=== PATIENT | male | born 1960 | race American Indian/Alaskan Native ===

== ENCOUNTER 2017-08-08 02:29 | Emergency (ER) | payer BC ==
[2017-08-08] MEDS ORDERED: Sodium Chloride 0.9% 10 ML Syringe FLUSH PRN (02:38)
--- NOTE | 2017-08-08 02:49 | EDM.PDOC ---
ED HPI GENERAL MEDICAL PROBLEM - General Chief Complaint: Cardiovascular Problem Stated Complaint: ABD/CHEST PAIN [id number] Time Seen by Provider: 08/08/17 02:44 Source of Information: Reports: Patient, RN, RN Notes Reviewed History Limitations: Reports: No Limitations - History of Present Illness INITIAL COMMENTS - FREE TEXT/NARRATIVE: Pt presents to the ER with c/o chest/gastric pain. He states he was up to the bathroom at 0030 when he began to have mid sternal/ gastric pain which radiated into the back. He states he had somewhat of an upset stomach. He denies any cardiac history. He states he takes Prilosec for GERD, and methotrexate for arthritis, but has no other health problems. Patient rates the pain a 7/10 and is more painful with palpation. Denies SOB, N/V/D, fever or chills. No radiation to the jaw, neck, or arms. Onset: Today, Sudden Onset Time: 00:30 Duration: Constant Location: Reports: Chest, Abdomen Quality: Reports: Pressure, Sharp, Stabbing Severity: Moderate Improves with: Reports: None Worsens with: Reports: None Associated Symptoms: Reports: Chest Pain Epigastric Pain Score (Numeric/FACES): 5 - Related Data Allergies Allergy/AdvReac Type Severity Reaction Status Date / Time varenicline tartrate Allergy Seizure Verified 08/08/17 02:54 [From Chantix] Home Meds: Home Meds Methotrexate Sodium [Methotrexate] 2.5 mg PO WEEKLY 08/08/17 [History] Omeprazole Magnesium [Prilosec] 20 mg PO DAILY 08/08/17 [History] Past Medical History - Past Health History Medical/Surgical History: Denies Medical/Surgical History HEENT History: Reports: Hard of Hearing Neurological History: Reports: Seizure Psychiatric History: Reports: Anxiety Social & Family History - Tobacco Use Smoking Status *Q: Never Smoker - Alcohol Use Days Per Week of Alcohol Use: 0 - Recreational Drug Use Recreational Drug Use: No ED ROS GENERAL - Review of Systems Review Of Systems: ROS reveals no pertinent complaints other than HPI. ED EXAM, GENERAL - Physical Exam Exam: See Below Exam Limited By: No Limitations General Appearance: Alert, WD/WN, No Apparent Distress Eye Exam: Bilateral Eye: EOMI, Normal Inspection, PERRL Ears: Normal External Exam, Hearing Grossly Normal Nose: Normal Inspection Throat/Mouth: Normal Inspection, Normal Voice, No Airway Compromise Head: Atraumatic, Normocephalic Neck: Normal Inspection, Supple, Non-Tender, Full Range of Motion Respiratory/Chest: No Respiratory Distress, Lungs Clear, Normal Breath Sounds, No Accessory Muscle Use, Chest Non-Tender Cardiovascular: Normal Peripheral Pulses, Regular Rate, Rhythm, No Edema, No Gallop, No JVD, No Murmur, No Rub Peripheral Pulses: 2+: Radial (L), Radial (R), Dorsalis Pedis (L), Dorsalis Pedis (R) GI/Abdominal: Normal Bowel Sounds, Soft, No Organomegaly, No Distention, No Abnormal Bruit, No Mass, Tender (epigastrum) (Male) Exam: Deferred Rectal (Males) Exam: Deferred Back Exam: Normal Inspection, Full Range of Motion Extremities: Normal Inspection, Normal Range of Motion, Non-Tender, Normal Capillary Refill, No Pedal Edema Neurological: Alert, Oriented, CN II-XII Intact, Normal Cognition, Normal Gait, Normal Reflexes, No Motor/Sensory Deficits Psychiatric: Normal Affect, Normal Mood Skin Exam: Warm, Dry, Intact, Normal Color, No Rash Lymphatic: No Adenopathy EKG INTERPRETATION EKG Date: 08/08/17 Time: 02:34 Rhythm: NSR Rate (Beats/Min): 74 [place]: Normal P-Wave: Present QRS: Normal ST-T: Normal QT: Normal Comparison: No Change Course - Vital Signs Last Recorded V/S: Last Vital Signs Temp 96.4 F 08/08/17 02:59 Pulse 63 08/08/17 02:59 Resp 14 08/08/17 02:59 BP 122/80 08/08/17 02:59 Pulse Ox 98 08/08/17 02:59 - Orders/Labs/Meds Orders: Active Orders 24 hr Category Date Time Status EKG Documentation Completion [RC] STAT Care 08/08/17 02:38 Active Chest 1V Frontal [CR] Stat Exams 08/08/17 02:38 Taken Sodium Chloride 0.9% [Saline Flush] Med 08/08/17 02:38 Active 10 ml FLUSH ASDIRECTED PRN Peripheral IV Insertion Adult [OM.PC] Stat Oth 08/08/17 02:38 Ordered Medication Orders Sodium Chloride (Saline Flush) 10 ml FLUSH ASDIRECTED PRN PRN Reason: Keep Vein Open Last Admin: 08/08/17 03:19 Dose: 10 ml Labs: Laboratory Tests 08/08/17 08/08/17 Range/Units 02:45 02:45 WBC 5.2 (5.0-10.0) 10^3/uL RBC 4.48 L (4.6-6.2) 10^6/uL Hgb 13.2 L (14.0-18.0) g/dL Hct 37.9 L (40.0-54.0) % MCV 84.6 (80-100) fL MCH 29.5 (27.0-34.0) pg MCHC 34.8 (33.0-35.0) g/dL Plt Count 124 L (150-450) 10^3/uL Neut % (Auto) 26.8 L (42.2-75.2) % Lymph % (Auto) 59.9 H (20.5-50.1) % [place] % (Auto) 12.5 H (2-8) % Eos % (Auto) 0.6 L (1.0-3.0) % Baso % (Auto) 0.2 (0.0-1.0) % Sodium 138 (135-145) mmol/L Potassium 3.7 (3.6-5.0) mmol/L Chloride 104 (101-111) mmol/L Carbon Dioxide 27.0 (21.0-31.0) mmol/L Anion Gap 10.7 BUN 16 (7-18) mg/dL Creatinine 0.9 (0.6-1.3) mg/dL Est Cr Clr Drug Dosing 107.82 mL/min Estimated GFR (MDRD) > 60 BUN/Creatinine Ratio 17.77 Glucose 107 H (74-105) mg/dL Calcium 9.0 (8.4-10.2) mg/dl Total Bilirubin 1.0 (0.2-1.0) mg/dL AST 26 (10-42) IU/L ALT 21 (10-60) IU/L Alkaline Phosphatase 47 (42-121) IU/L Troponin I < 0.02 (0.00-0.02) ng/ml Total Protein 7.3 (6.7-8.2) g/dl Albumin 4.3 (3.2-5.5) g/dl Globulin 3.0 Albumin/Globulin Ratio 1.43 Amylase 49 (28-100) U/L Lipase 25 (22-51) U/L Meds: Medications Generic Name Dose Route Start Last Admin Trade Name Freq PRN Reason Stop Dose Admin Sodium Chloride 10 ml 08/08/17 02:38 08/08/17 03:19 Saline Flush FLUSH 10 ml ASDIRECTED PRN Administration Keep Vein Open Discontinued Medications Generic Name Dose Route Start Last Admin Trade Name Freq PRN Reason Stop Dose Admin Al Hydroxide/Mg Hydroxide 30 ml 08/08/17 03:09 08/08/17 03:18 Gi Cocktail PO 08/08/17 03:10 30 ml ONETIME ONE Administration Pantoprazole Sodium 40 mg 08/08/17 03:39 08/08/17 03:54 Protonix Iv IVPUSH 08/08/17 03:40 40 mg ONETIME ONE Administration Sucralfate 1 gm 08/08/17 03:55 08/08/17 04:03 Carafate PO 08/08/17 03:56 1 gm ONETIME ONE Administration - Radiology Interpretation Free Text/Narrative:: Chest xray:IMPRESSION: Normal chest x-ray. Thank you for allowing us to participate in the care of your patient. Dictated and Authenticated by: Chet Betancourt MD 08/08/2017 3:42 AM Central Time ([place] & [place]) See rad report Departure - Departure Time of Disposition: 04:08 Disposition: Home, Self-Care 01 Condition: Fair Clinical Impression: Gastroesophageal reflux disease Qualifiers: Esophagitis presence: esophagitis presence not specified Qualified Code(s): K21.9 - Gastro-esophageal reflux disease without esophagitis Instructions: Food Choices for Gastroesophageal Reflux Disease, Adult, Easy-to- Read, Nonspecific Chest Pain, [id number], Gastroesophageal Reflux Disease, Adult, [id number] Forms: ED Department Discharge Additional Instructions: Drink plenty of water RX: Carafate Make an appointment to see Dr. Perez next week - My Orders Last 24 Hours: My Active Orders 08/08/17 02:38 EKG Documentation Completion [RC] STAT Chest 1V Frontal [CR] Stat Sodium Chloride 0.9% [Saline Flush] 10 ml FLUSH ASDIRECTED PRN Peripheral IV Insertion Adult [OM.PC] Stat - Assessment/Plan Last 24 Hours: My Active Orders 08/08/17 02:38 EKG Documentation Completion [RC] STAT Chest 1V Frontal [CR] Stat Sodium Chloride 0.9% [Saline Flush] 10 ml FLUSH ASDIRECTED PRN Peripheral IV Insertion Adult [OM.PC] Stat
[2017-08-08 03:08] VITALS: BP 122/80
[2017-08-08] MEDS ORDERED: GI Cocktail Oral Solution 30 ML PO ONE (03:09)
[2017-08-08 03:11] LABS: CHLORIDE,CL 104 mmol/L (101-111); SODIUM,NA 138 mmol/L (135-145)
[2017-08-08] MEDS ORDERED: Pantoprazole 40 MG Vial IVPUSH ONE (03:39)
[2017-08-08] MEDS ORDERED: Sucralfate Suspension 1 GM/10 ML Cup PO ONE (03:55)
--- NOTE | 2017-08-11 14:03 | EKG ---
08/08/2017- TYLER ALMANZAR - FINDINGS: EKG, per my reading, shows sinus rhythm at the rate of 70s. MOD /[id number]
== END 2017-08-08 04:15 | disposition home or self-care (01) ==
LOC: DL.ED 02:29
DX: K21.9 Gastro-esophageal reflux disease without esophagitis (principal); Z88.8 Allergy status to other drugs, medicaments and biological substances; Z79.899 Other long term (current) drug therapy
CPT/HCPCS: 36415; 71045; 80053; 82150; 83690; 84484; 85025; 93005; 96374; 99284; A9270; C9113; J7050

== ENCOUNTER 2019-03-21 14:57 | Observation (INO) | payer BC ==
[2019-03-21 15:36] LABS: ANION GAP 14.1; CHLORIDE,CL 102 mmol/L (101-111); SODIUM,NA 140 mmol/L (135-145)
[2019-03-21] MEDS ORDERED: Morphine 2 MG/ML Syringe IVPUSH ONE (15:41)
[2019-03-21] MEDS ORDERED: Iopamidol 612 MG/ML 100 ML Bottle IVPUSH ONE (16:02)
[2019-03-21] MEDS ORDERED: Pantoprazole 40 MG Vial IVPUSH ONE (17:15)
--- NOTE | 2019-03-21 17:28 | EDM.PDOC ---
Scribed by China Taylor 03/21/19 1726 for Ruba Covington NP ED HPI GENERAL MEDICAL PROBLEM - General Chief Complaint: Chest Pain Stated Complaint: CHEST PAIN Time Seen by Provider: 03/21/19 15:14 Source of Information: Reports: Patient, RN, RN Notes Reviewed History Limitations: Reports: No Limitations - History of Present Illness INITIAL COMMENTS - FREE TEXT/NARRATIVE: Patient presents to ER stating that at 10:00 A.M. this morning he got upper abdominal epigastric pain under both diaphragms. It was severe when he was bent over and severe, then resolved. He had mild nausea. Pain returned one hour ago and presently in ER resolved when being examined. The epigastric pain returned. No nausea or diaphoresis. Denies chest pain. No cardiac history, nonsmoker. No alcohol. Family history negative for cardiac disease. No history of hypertension or diabetes. Last bowel movement yesterday, but having constipation and hard time going to the bathroom. Onset: Today Duration: Getting Worse Location: Reports: Chest Quality: Reports: Ache Severity: Severe Improves with: Reports: None Worsens with: Reports: None Associated Symptoms: Reports: No Other Symptoms Epigastric Pain Score (Numeric/FACES): 8 - Related Data Allergies Allergy/AdvReac Type Severity Reaction Status Date / Time varenicline tartrate Allergy Unknown Seizure Verified 03/21/19 15:10 [From Chantix] Home Meds: Home Meds Methotrexate Sodium [Methotrexate] 2.5 mg PO WEEKLY 08/08/17 [History] Omeprazole Magnesium [Prilosec] 20 mg PO DAILY 08/08/17 [History] Past Medical History - Past Health History Medical/Surgical History: Denies Medical/Surgical History HEENT History: Reports: Hard of Hearing Gastrointestinal History: Reports: GERD Musculoskeletal History: Reports: Arthritis, Other (See Below) Other Musculoskeletal History: ankle, wrist and leg and foot fx. Neurological History: Reports: Seizure Psychiatric History: Reports: Anxiety - Past Surgical History Musculoskeletal Surgical History: Reports: Other (See Below) (ankle surgery) Social & Family History - Family History Family Medical History: Noncontributory - Caffeine Use Caffeine Use: Reports: Coffee ED ROS GENERAL - Review of Systems Review Of Systems: ROS reveals no pertinent complaints other than HPI. ED EXAM, GENERAL - Physical Exam Exam: See Below Exam Limited By: No Limitations General Appearance: Alert, WD/WN, No Apparent Distress Respiratory/Chest: No Respiratory Distress, Lungs Clear, Normal Breath Sounds, No Accessory Muscle Use, Chest Non-Tender Cardiovascular: Normal Peripheral Pulses, Regular Rate, Rhythm, No Edema, No Gallop, No JVD, No Murmur, No Rub GI/Abdominal: Normal Bowel Sounds, Soft, Other (Upper abdominal pain with palpation) Back Exam: Other (No CVA tenderness) Extremities: Normal Inspection Neurological: Alert, Oriented, CN II-XII Intact, Normal Cognition, Normal Gait, Normal Reflexes, No Motor/Sensory Deficits Skin Exam: Warm, Dry, Intact, Normal Color, No Rash Course - Vital Signs Last Recorded V/S: Last Vital Signs Temp 36.1 C 03/21/19 15:10 Pulse 64 03/21/19 15:10 Resp 18 03/21/19 16:04 BP 138/77 03/21/19 15:10 Pulse Ox 96 03/21/19 16:04 - Orders/Labs/Meds Orders: Active Orders 24 hr Category Date Time Status Admission Diagnosis [ADT] Stat ADT 03/21/19 17:17 Ordered Admission Status [Patient Status] [ADT] Routine ADT 03/21/19 17:18 Active EKG Documentation Completion [RC] STAT Care 03/21/19 15:12 Active Abdomen 2V AP Flat Upright [CR] Urgent Exams 03/21/19 15:39 Stop Req C-REACTIVE PROTEIN [CHEM] Stat Lab 03/21/19 17:17 Ordered CULTURE BLOOD [BC] Stat Lab 03/21/19 17:18 Ordered CULTURE BLOOD [BC] Stat Lab 03/21/19 17:18 Ordered URINALYSIS W/MICROSCOPIC [UA W/MICROSCOPIC] [URIN] Stat Lab 03/21/19 17:08 Ordered Pantoprazole [ProTONIX IV] 40 mg Med 03/21/19 17:30 Active Sodium Chloride 0.9% [Normal Saline] 100 ml IV .CONTINUOS Sodium Chloride 0.9% [Normal Saline] 1,000 ml Med 03/21/19 17:30 Active IV ASDIRECTED Blood Culture x2 Reflex Set [OM.PC] Stat Oth 03/21/19 17:17 Ordered Medication Orders Pantoprazole Sodium 40 mg/ (Sodium Chloride) 100 mls @ 20 mls/hr IV .CONTINUOS KAMINI Sodium Chloride (Normal Saline) 1,000 mls @ 150 mls/hr IV ASDIRECTED [facility] Labs: Laboratory Tests 03/21/19 03/21/19 03/21/19 Range/Units 15:08 15:08 15:08 WBC 18.6 H (5.0-10.0) 10^3/uL RBC 5.04 (4.6-6.2) 10^6/uL Hgb 15.0 D (14.0-18.0) g/dL Hct 43.5 (40.0-54.0) % MCV 86.3 (80-100) fL MCH 29.8 (27.0-34.0) pg MCHC 34.5 (33.0-35.0) g/dL Plt Count 155 (150-450) 10^3/uL Neut % (Auto) 12.1 L (42.2-75.2) % Lymph % (Auto) 81.8 H (20.5-50.1) % [place] % (Auto) 5.7 (2-8) % Eos % (Auto) 0.3 L (1.0-3.0) % Baso % (Auto) 0.1 (0.0-1.0) % Add Manual Diff Yes Neutrophils % (Manual) 13 L (42-75) % Band Neutrophils % 4 % Lymphocytes % (Manual) 78 H (20-50) % Monocytes % (Manual) 5 (2-8) % Atypical Lymphocytes Many Platelet Estimate Adequate Anisocytosis 1+ slight Sodium 140 (135-145) mmol/L Potassium 4.1 (3.6-5.0) mmol/L Chloride 102 (101-111) mmol/L Carbon Dioxide 28.0 (21.0-31.0) mmol/L Anion Gap 14.1 BUN 11 (7-18) mg/dL Creatinine 0.8 (0.6-1.3) mg/dL Est Cr Clr Drug Dosing 118.45 mL/min Estimated GFR (MDRD) > 60 BUN/Creatinine Ratio 13.75 Glucose 96 (74-105) mg/dL Calcium 9.6 (8.4-10.2) mg/dl Total Bilirubin 1.5 H (0.2-1.0) mg/dL AST 27 (10-42) IU/L ALT 21 (10-60) IU/L Alkaline Phosphatase 64 (42-121) IU/L Troponin I 0.00 (0.00-0.08) ng/mL Total Protein 7.9 (6.7-8.2) g/dl Albumin 4.7 (3.2-5.5) g/dl Globulin 3.2 Albumin/Globulin Ratio 1.47 Lipase 62 H (22-51) U/L Meds: Medications Generic Name Dose Route Start Last Admin Trade Name Freq PRN Reason Stop Dose Admin Pantoprazole Sodium 40 mg/ 100 mls @ 20 mls/hr 03/21/19 17:30 Sodium Chloride IV .CONTINUOS KAMINI Sodium Chloride 1,000 mls @ 150 mls/hr 03/21/19 17:30 Normal Saline IV ASDIRECTED KAMINI Discontinued Medications Generic Name Dose Route Start Last Admin Trade Name Freq PRN Reason Stop Dose Admin Iopamidol 100 ml 03/21/19 16:02 03/21/19 16:26 Isovue-300 (61%) IVPUSH 03/21/19 16:03 100 ml ONETIME ONE Administration Morphine Sulfate 2 mg 03/21/19 15:41 03/21/19 15:44 Morphine IVPUSH 03/21/19 15:42 2 mg ONETIME ONE Administration Pantoprazole Sodium 40 mg 03/21/19 17:15 Protonix Iv IVPUSH 03/21/19 17:16 ONETIME ONE - Radiology Interpretation Free Text/Narrative:: Chest x-ray: No acute findings. No significant change is identified since the prior exam. See rad report. CT abdomen/pelvis: No acute abnormality. See rad report. - Re-Assessments/Exams Free Text/Narrative Re-Assessment/Exam: 03/21/19 17:21 No acute findings on abd/pelvic CT/w contrast No acute findings on CXR No fevers WBC's 18 Lipase mild elevated. Alk phos negative. Bili 1.5 elevated Troponin Neg Normal creat and glucose With Leukocytosis; and intermittent abdominal pain; concern for f/u. May be related to stress and increase acids; Protonix IV given. IVF started. spoke to Dr. bassett Hospitalist; will admit for abdominal pain and + leukocytosis. Morphine given in ER for pain control. Discussed with patient and and they would like to go with the admission; observation. Departure - Departure Time of Disposition: 17:27 Disposition: Refer to Observation Condition: Good Clinical Impression: Abdominal pain Qualifiers: Abdominal location: epigastric Qualified Code(s): R10.13 - Epigastric pain Forms: ED Department Discharge - My Orders Last 24 Hours: My Active Orders 03/21/19 15:12 EKG Documentation Completion [RC] STAT 03/21/19 15:39 Abdomen 2V AP Flat Upright [CR] Urgent 03/21/19 17:08 URINALYSIS W/MICROSCOPIC [UA W/MICROSCOPIC] [URIN] Stat 03/21/19 17:17 Admission Diagnosis [ADT] Stat C-REACTIVE PROTEIN [CHEM] Stat Blood Culture x2 Reflex Set [OM.PC] Stat 03/21/19 17:18 Admission Status [Patient Status] [ADT] Routine CULTURE BLOOD [BC] Stat CULTURE BLOOD [BC] Stat 03/21/19 17:30 Pantoprazole [ProTONIX IV] 40 mg Sodium Chloride 0.9% [Normal Saline] 100 ml IV .CONTINUOS Sodium Chloride 0.9% [Normal Saline] 1,000 ml IV ASDIRECTED - Assessment/Plan Last 24 Hours: My Active Orders 03/21/19 15:12 EKG Documentation Completion [RC] STAT 03/21/19 15:39 Abdomen 2V AP Flat Upright [CR] Urgent 03/21/19 17:08 URINALYSIS W/MICROSCOPIC [UA W/MICROSCOPIC] [URIN] Stat 03/21/19 17:17 Admission Diagnosis [ADT] Stat C-REACTIVE PROTEIN [CHEM] Stat Blood Culture x2 Reflex Set [OM.PC] Stat 03/21/19 17:18 Admission Status [Patient Status] [ADT] Routine CULTURE BLOOD [BC] Stat CULTURE BLOOD [BC] Stat 03/21/19 17:30 Pantoprazole [ProTONIX IV] 40 mg Sodium Chloride 0.9% [Normal Saline] 100 ml IV .CONTINUOS Sodium Chloride 0.9% [Normal Saline] 1,000 ml IV ASDIRECTED I have read and agree with the documentation that has been completed regarding this visit. By signing this record, I attest that the documentation was completed in my physical presence and is an accurate record of the encounter.
[2019-03-21] MEDS ORDERED: Sodium Chloride 0.9% 1,000 ML IV SCH (17:30)
[2019-03-21] MEDS ORDERED: Pantoprazole 40 MG in Sodium Chloride 0.9% 100 ML IV SCH (17:30)
[2019-03-21] MEDS ORDERED: Docusate Sodium 100 MG Cap PO PRN (18:47)
[2019-03-21] MEDS ORDERED: Acetaminophen 325 MG Tab PO PRN (18:47)
[2019-03-21] MEDS ORDERED: Morphine 2 MG/ML Syringe IVPUSH PRN (18:47)
[2019-03-21] MEDS ORDERED: Magnesium Hydroxide 400 MG/5 ML Susp 30 ML Cup PO PRN (18:47)
[2019-03-21] MEDS ORDERED: Polyethylene Glycol 3350 Powder 17 GM Packet PO PRN (18:47)
[2019-03-21] MEDS ORDERED: Zolpidem 5 MG Tab PO PRN (18:47)
[2019-03-21] MEDS ORDERED: Ondansetron 4 MG/2 ML SDV IVPUSH PRN (18:47)
[2019-03-21] MEDS ORDERED: Ondansetron 4 MG Tab.DIS PO PRN (18:47)
[2019-03-21] MEDS ORDERED: Acetaminophen/HYDROcodone 325-10 MG Tab PO PRN (18:47)
[2019-03-21] MEDS ORDERED: Dextrose 5%-0.45% NaCl 1,000 ML IV SCH (19:00)
[2019-03-21] MEDS ORDERED: Sodium Chloride 0.9% 1,000 ML IV ONE (19:08)
--- NOTE | 2019-03-21 19:29 | PCM.PN ---
- General Info Date of Service: 03/21/19 Admission Dx/Problem (Free Text): 58-year-old male with past medical history of rheumatoid arthritis on methotrexate and GERD on omeprazole who presented to emergency room for epigastric pain started today. Patient explains pain as piercing severe pain started around 11 AM today lasted about 15 minutes and then went away for about 30 minutes to come back. Lasted 45 minutes this time and went away to come back later this evening and lasted over 30 minutes, at least subsidized in emergency room after morphine. Pain radiates to the back, rated 10/10 on pain scale, it was not as she denies any symptoms except nausea this evening. He admitted that his bowel was not regular stating that he could be constipated. He mainly doesn' t feel he is fully emptying his bowels. He denies history of gallbladder stone, kidney stone, pancreatitis, bowel obstruction, liver disease, or any other intra -abdominal disease. He denies vomiting, diarrhea, dysuria, urinary frequency, blood in stool, black stool, blood in urine, headache, upper respiratory symptoms, chest pain, shortness breath, palpitation, rash, joint flareup, unilateral weakness/numbness/tingling, any other symptoms or concern. He denies starting new medications recently. He denies ill contact. He has been on weekly methotrexate for years. Last dose was last . - Patient Data Vitals - Most Recent: Last Vital Signs Temp 36.1 C 03/21/19 15:10 Pulse 64 03/21/19 15:10 Resp 18 03/21/19 16:04 BP 138/77 03/21/19 15:10 Pulse Ox 96 03/21/19 16:04 Weight - Most Recent: 104.598 kg Lab Results Last 24 Hours: Laboratory Results - last 24 hr 03/21/19 03/21/19 03/21/19 Range/Units 15:08 15:08 15:08 WBC 18.6 H (5.0-10.0) 10^3/uL RBC 5.04 (4.6-6.2) 10^6/uL Hgb 15.0 D (14.0-18.0) g/dL Hct 43.5 (40.0-54.0) % MCV 86.3 (80-100) fL MCH 29.8 (27.0-34.0) pg MCHC 34.5 (33.0-35.0) g/dL Plt Count 155 (150-450) 10^3/uL Neut % (Auto) 12.1 L (42.2-75.2) % Lymph % (Auto) 81.8 H (20.5-50.1) % [place] % (Auto) 5.7 (2-8) % Eos % (Auto) 0.3 L (1.0-3.0) % Baso % (Auto) 0.1 (0.0-1.0) % Add Manual Diff Yes Neutrophils % (Manual) 13 L (42-75) % Band Neutrophils % 4 % Lymphocytes % (Manual) 78 H (20-50) % Monocytes % (Manual) 5 (2-8) % Atypical Lymphocytes Many Platelet Estimate Adequate Anisocytosis 1+ slight Sodium 140 (135-145) mmol/L Potassium 4.1 (3.6-5.0) mmol/L Chloride 102 (101-111) mmol/L Carbon Dioxide 28.0 (21.0-31.0) mmol/L Anion Gap 14.1 BUN 11 (7-18) mg/dL Creatinine 0.8 (0.6-1.3) mg/dL Est Cr Clr Drug Dosing 118.45 mL/min Estimated GFR (MDRD) > 60 BUN/Creatinine Ratio 13.75 Glucose 96 (74-105) mg/dL Calcium 9.6 (8.4-10.2) mg/dl Total Bilirubin 1.5 H (0.2-1.0) mg/dL AST 27 (10-42) IU/L ALT 21 (10-60) IU/L Alkaline Phosphatase 64 (42-121) IU/L Troponin I 0.00 (0.00-0.08) ng/mL C-Reactive Protein (0.0-1.3) mg/dL Total Protein 7.9 (6.7-8.2) g/dl Albumin 4.7 (3.2-5.5) g/dl Globulin 3.2 Albumin/Globulin Ratio 1.47 Lipase 62 H (22-51) U/L Urine Color (YELLOW) Urine Appearance (CLEAR) Urine pH (5.0-9.0) Ur Specific [place] (1.005-1.030) Urine Protein (NEGATIVE) Urine Glucose (UA) (NEGATIVE) Urine Ketones (NEGATIVE) Urine Occult Blood (NEGATIVE) Urine Nitrite (NEGATIVE) Urine Bilirubin (NEGATIVE) Urine Urobilinogen (0.2-1.0) mg/dL Ur Leukocyte Esterase (NEGATIVE) Urine RBC /HPF Urine WBC (0-5/HPF) /HPF Ur Epithelial Cells (NOT SEEN) /HPF Urine Bacteria (0-FEW/HPF) /HPF 03/21/19 03/21/19 Range/Units 15:08 17:25 WBC (5.0-10.0) 10^3/uL RBC (4.6-6.2) 10^6/uL Hgb (14.0-18.0) g/dL Hct (40.0-54.0) % MCV (80-100) fL MCH (27.0-34.0) pg MCHC (33.0-35.0) g/dL Plt Count (150-450) 10^3/uL Neut % (Auto) (42.2-75.2) % Lymph % (Auto) (20.5-50.1) % [place] % (Auto) (2-8) % Eos % (Auto) (1.0-3.0) % Baso % (Auto) (0.0-1.0) % Add Manual Diff Neutrophils % (Manual) (42-75) % Band Neutrophils % % Lymphocytes % (Manual) (20-50) % Monocytes % (Manual) (2-8) % Atypical Lymphocytes Platelet Estimate Anisocytosis Sodium (135-145) mmol/L Potassium (3.6-5.0) mmol/L Chloride (101-111) mmol/L Carbon Dioxide (21.0-31.0) mmol/L Anion Gap BUN (7-18) mg/dL Creatinine (0.6-1.3) mg/dL Est Cr Clr Drug Dosing mL/min Estimated GFR (MDRD) BUN/Creatinine Ratio Glucose (74-105) mg/dL Calcium (8.4-10.2) mg/dl Total Bilirubin (0.2-1.0) mg/dL AST (10-42) IU/L ALT (10-60) IU/L Alkaline Phosphatase (42-121) IU/L Troponin I (0.00-0.08) ng/mL C-Reactive Protein 1.0 (0.0-1.3) mg/dL Total Protein (6.7-8.2) g/dl Albumin (3.2-5.5) g/dl Globulin Albumin/Globulin Ratio Lipase (22-51) U/L Urine Color Yellow (YELLOW) Urine Appearance Clear (CLEAR) Urine pH 6.5 (5.0-9.0) Ur Specific [place] 1.010 (1.005-1.030) Urine Protein Negative (NEGATIVE) Urine Glucose (UA) Negative (NEGATIVE) Urine Ketones Negative (NEGATIVE) Urine Occult Blood Negative (NEGATIVE) Urine Nitrite Negative (NEGATIVE) Urine Bilirubin Negative (NEGATIVE) Urine Urobilinogen 1.0 (0.2-1.0) mg/dL Ur Leukocyte Esterase Negative (NEGATIVE) Urine RBC Not seen /HPF Urine WBC Not seen (0-5/HPF) /HPF Ur Epithelial Cells Rare (NOT SEEN) /HPF Urine Bacteria Rare (0-FEW/HPF) /HPF Med Orders - Current: Current Medications Acetaminophen (Tylenol) 650 mg PO Q4H PRN PRN Reason: Pain (Mild 1-3)/fever Hydrocodone Bitart/Acetaminophen ([place] 325-10 Mg) 1 tab PO Q4H PRN PRN Reason: Pain (moderate 4-6) Docusate Sodium (Colace) 100 mg PO BID PRN PRN Reason: Constipation Enoxaparin Sodium (Lovenox) 40 mg SUBCUT DAILY KAMINI Folic Acid (Folic Acid) 1 mg PO DAILY KAMINI Pantoprazole Sodium 40 mg/ (Sodium Chloride) 100 mls @ 20 mls/hr IV .CONTINUOS KAMINI Dextrose/Sodium Chloride (Dextrose 5%-1/2 Ns) 1,000 mls @ 125 mls/hr IV ASDIRECTED KAMINI Sodium Chloride (Normal Saline) 1,000 mls @ 500 mls/hr IV ONETIME ONE Stop: 03/21/19 21:07 Magnesium Hydroxide (Milk Of Magnesia) 30 ml PO Q12H PRN PRN Reason: Constipation Morphine Sulfate (Morphine) 2 mg IVPUSH Q2H PRN PRN Reason: Pain (severe 7-10) Ondansetron HCl (Zofran Odt) 4 mg PO Q6H PRN PRN Reason: nausea, able to take PO Ondansetron HCl (Zofran) 4 mg IVPUSH Q6H PRN PRN Reason: Nausea/Vomiting Pantoprazole Sodium (Protonix Iv) 40 mg IVPUSH Q12HR [facility] Polyethylene Glycol (Miralax) 17 gm PO DAILY PRN PRN Reason: Constipation Zolpidem Tartrate (Ambien) 5 mg PO BEDTIME PRN PRN Reason: Sleep Discontinued Medications Sodium Chloride (Normal Saline) 1,000 mls @ 150 mls/hr IV ASDIRECTED [facility] Iopamidol (Isovue-300 (61%)) 100 ml IVPUSH ONETIME ONE Stop: 03/21/19 16:03 Last Admin: 03/21/19 16:26 Dose: 100 ml Morphine Sulfate (Morphine) 2 mg IVPUSH ONETIME ONE Stop: 03/21/19 15:42 Last Admin: 03/21/19 15:44 Dose: 2 mg Pantoprazole Sodium (Protonix Iv) 40 mg IVPUSH ONETIME ONE Stop: 03/21/19 17:16 - My Orders Last 24 Hours: My Active Orders 03/21/19 18:47 Intake and Output [RC] Q6H May Shower [RC] ASDIRECTED Notify Provider Vital Signs [RC] Oxygen Therapy [RC] .PRN Up ad Summer [RC] ASDIRECTED VTE/DVT Education [RC] PER UNIT ROUTINE Vital Signs [RC] Q4H Acetaminophen [Tylenol] 650 mg PO Q4H PRN Acetaminophen/HYDROcodone [[place] 325-10 MG] 1 tab PO Q4H PRN Docusate Sodium [Colace] 100 mg PO BID PRN Magnesium Hydroxide [Milk of Magnesia] 30 ml PO Q12H PRN Morphine 2 mg IVPUSH Q2H PRN Ondansetron [Zofran ODT] 4 mg PO Q6H PRN Ondansetron [Zofran] 4 mg IVPUSH Q6H PRN Polyethylene Glycol 3350 [MiraLAX] 17 gm PO DAILY PRN Zolpidem [Ambien] 5 mg PO BEDTIME PRN Resuscitation Status Routine 03/21/19 19:00 Dextrose 5%-0.45% NaCl [Dextrose 5%-1/2 NS] 1,000 ml IV ASDIRECTED 03/21/19 19:08 Sodium Chloride 0.9% [Normal Saline] 1,000 ml IV ONETIME 03/21/19 Breakfast Clear Liquid Diet [DIET] 03/22/19 05:11 CBC WITH AUTO DIFF [HEME] AM COMPREHENSIVE METABOLIC PN,CMP [CHEM] AM MAGNESIUM [CHEM] AM 03/22/19 09:00 Enoxaparin [Lovenox] 40 mg SUBCUT DAILY Folic Acid 1 mg PO DAILY Pantoprazole [ProTONIX IV] 40 mg IVPUSH Q12HR
--- NOTE | 2019-03-21 19:49 | PCM.HP ---
H&P History of Present Illness - General Date of Service: 03/21/19 Admit Problem/Dx: Abdominal pain Source of Information: Patient - History of Present Illness Initial Comments - Free Text/Narative: 58-year-old male with past medical history of rheumatoid arthritis on methotrexate and GERD on omeprazole who presented to emergency room for epigastric pain started today. Patient explains pain as piercing severe pain started around 11 AM today lasted about 15 minutes and then went away for about 30 minutes to come back. Lasted 45 minutes this time and went away to come back later this evening and lasted over 30 minutes, at least subsidized in emergency room after morphine. Pain radiates to the back, rated 10/10 on pain scale, it was not as she denies any symptoms except nausea this evening. He admitted that his bowel was not regular stating that he could be constipated. He mainly doesn' t feel he is fully emptying his bowels. He denies history of gallbladder stone, kidney stone, pancreatitis, bowel obstruction, liver disease, or any other intra -abdominal disease. He denies vomiting, diarrhea, dysuria, urinary frequency, blood in stool, black stool, blood in urine, headache, upper respiratory symptoms, chest pain, shortness breath, palpitation, rash, joint flareup, unilateral weakness/numbness/tingling, any other symptoms or concern. He denies starting new medications recently. He denies ill contact. He has been on weekly methotrexate for years. Last dose was last Epigastric Pain Score (Numeric/FACES): 8 - Related Data Allergies/Adverse Reactions: Allergies Allergy/AdvReac Type Severity Reaction Status Date / Time varenicline tartrate Allergy Unknown Seizure Verified 03/21/19 18:38 [From Chantix] Home Medications: Home Meds Methotrexate Sodium [Methotrexate] 20 mg PO .Friday08/08/17 [History] Omeprazole Magnesium [Prilosec] 20 mg PO DAILY 08/08/17 [History] Folic Acid 1 mg PO DAILY 03/21/19 [History] Past Medical History - Past Health History Medical/Surgical History: Denies Medical/Surgical History HEENT History: Reports: Hard of Hearing, Impaired Vision Gastrointestinal History: Reports: GERD Musculoskeletal History: Reports: Arthritis, Fracture, Other (See Below) Other Musculoskeletal History: ankle, wrist and leg and foot fx. 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 Social & Family History - Family History Family Medical History: Noncontributory - Tobacco Use Smoking Status *Q: Former Smoker Used Tobacco, but Quit: Yes Month/Year Tobacco Last Used: 2015 - Caffeine Use Caffeine Use: Reports: Coffee Caffeine Use Comment: 2-4 cups coffee daily. - Recreational Drug Use Recreational Drug Use: No H&P Review of Systems - Review of Systems: Review Of Systems: ROS reveals no pertinent complaints other than HPI. Exam - Exam Exam: See Below - Vital Signs Vital Signs: Last Vital Signs Temp 36.1 C 03/21/19 15:10 Pulse 64 03/21/19 15:10 Resp 18 03/21/19 16:04 BP 138/77 03/21/19 15:10 Pulse Ox 96 03/21/19 16:04 Weight: 104.598 kg - Exam General: Alert, Oriented, Cooperative. No: Mild Distress, Moderate Distress, Severe Distress, Sedated, Lethargic, Obtunded HEENT: Conjunctiva Clear, EACs Clear, EOMI, Hearing Intact, Mucosa Moist & [place] , Nares Patent, Normal Nasal Septum, Posterior Pharynx Clear, Pupils Equal, Pupils Reactive Neck: Supple, Trachea Midline Lungs: Clear to Auscultation, Normal Respiratory Effort. No: Decreased Breath Sounds, Crackles, Rales, Rhonchi, Rub, Stridor, Wheezing Cardiovascular: Regular Rate, Regular Rhythm, Normal S1, Normal S2 GI/Abdominal Exam: Normal Bowel Sounds, Soft, Non-Tender, No Organomegaly, No Distention (Male) Exam: Deferred Rectal (Males) Exam: Deferred Back Exam: Normal Inspection, Full Range of Motion. No: CVA Tenderness (L), CVA Tenderness (R) Extremities: Normal Inspection, Normal Range of Motion, Non-Tender, No Pedal Edema, Normal Capillary Refill Skin: Warm, Dry, Intact Neurological: Strength Equal Bilateral, Normal Speech. No: Focal Deficit Neuro Extensive - Mental Status: Alert Psychiatric: Alert, Normal Affect, Normal Mood. No: Suicidal Ideation, Homicidal Ideation - Patient Data Lab Results Last 24 hrs: Laboratory Results - last 24 hr 03/21/19 03/21/19 03/21/19 Range/Units 15:08 15:08 15:08 WBC 18.6 H (5.0-10.0) 10^3/uL RBC 5.04 (4.6-6.2) 10^6/uL Hgb 15.0 D (14.0-18.0) g/dL Hct 43.5 (40.0-54.0) % MCV 86.3 (80-100) fL MCH 29.8 (27.0-34.0) pg MCHC 34.5 (33.0-35.0) g/dL Plt Count 155 (150-450) 10^3/uL Neut % (Auto) 12.1 L (42.2-75.2) % Lymph % (Auto) 81.8 H (20.5-50.1) % [place] % (Auto) 5.7 (2-8) % Eos % (Auto) 0.3 L (1.0-3.0) % Baso % (Auto) 0.1 (0.0-1.0) % Add Manual Diff Yes Neutrophils % (Manual) 13 L (42-75) % Band Neutrophils % 4 % Lymphocytes % (Manual) 78 H (20-50) % Monocytes % (Manual) 5 (2-8) % Atypical Lymphocytes Many Platelet Estimate Adequate Anisocytosis 1+ slight Sodium 140 (135-145) mmol/L Potassium 4.1 (3.6-5.0) mmol/L Chloride 102 (101-111) mmol/L Carbon Dioxide 28.0 (21.0-31.0) mmol/L Anion Gap 14.1 BUN 11 (7-18) mg/dL Creatinine 0.8 (0.6-1.3) mg/dL Est Cr Clr Drug Dosing 118.45 mL/min Estimated GFR (MDRD) > 60 BUN/Creatinine Ratio 13.75 Glucose 96 (74-105) mg/dL Calcium 9.6 (8.4-10.2) mg/dl Total Bilirubin 1.5 H (0.2-1.0) mg/dL AST 27 (10-42) IU/L ALT 21 (10-60) IU/L Alkaline Phosphatase 64 (42-121) IU/L Troponin I 0.00 (0.00-0.08) ng/mL C-Reactive Protein (0.0-1.3) mg/dL Total Protein 7.9 (6.7-8.2) g/dl Albumin 4.7 (3.2-5.5) g/dl Globulin 3.2 Albumin/Globulin Ratio 1.47 Lipase 62 H (22-51) U/L Urine Color (YELLOW) Urine Appearance (CLEAR) Urine pH (5.0-9.0) Ur Specific [place] (1.005-1.030) Urine Protein (NEGATIVE) Urine Glucose (UA) (NEGATIVE) Urine Ketones (NEGATIVE) Urine Occult Blood (NEGATIVE) Urine Nitrite (NEGATIVE) Urine Bilirubin (NEGATIVE) Urine Urobilinogen (0.2-1.0) mg/dL Ur Leukocyte Esterase (NEGATIVE) Urine RBC /HPF Urine WBC (0-5/HPF) /HPF Ur Epithelial Cells (NOT SEEN) /HPF Urine Bacteria (0-FEW/HPF) /HPF 03/21/19 03/21/19 Range/Units 15:08 17:25 WBC (5.0-10.0) 10^3/uL RBC (4.6-6.2) 10^6/uL Hgb (14.0-18.0) g/dL Hct (40.0-54.0) % MCV (80-100) fL MCH (27.0-34.0) pg MCHC (33.0-35.0) g/dL Plt Count (150-450) 10^3/uL Neut % (Auto) (42.2-75.2) % Lymph % (Auto) (20.5-50.1) % [place] % (Auto) (2-8) % Eos % (Auto) (1.0-3.0) % Baso % (Auto) (0.0-1.0) % Add Manual Diff Neutrophils % (Manual) (42-75) % Band Neutrophils % % Lymphocytes % (Manual) (20-50) % Monocytes % (Manual) (2-8) % Atypical Lymphocytes Platelet Estimate Anisocytosis Sodium (135-145) mmol/L Potassium (3.6-5.0) mmol/L Chloride (101-111) mmol/L Carbon Dioxide (21.0-31.0) mmol/L Anion Gap BUN (7-18) mg/dL Creatinine (0.6-1.3) mg/dL Est Cr Clr Drug Dosing mL/min Estimated GFR (MDRD) BUN/Creatinine Ratio Glucose (74-105) mg/dL Calcium (8.4-10.2) mg/dl Total Bilirubin (0.2-1.0) mg/dL AST (10-42) IU/L ALT (10-60) IU/L Alkaline Phosphatase (42-121) IU/L Troponin I (0.00-0.08) ng/mL C-Reactive Protein 1.0 (0.0-1.3) mg/dL Total Protein (6.7-8.2) g/dl Albumin (3.2-5.5) g/dl Globulin Albumin/Globulin Ratio Lipase (22-51) U/L Urine Color Yellow (YELLOW) Urine Appearance Clear (CLEAR) Urine pH 6.5 (5.0-9.0) Ur Specific [place] 1.010 (1.005-1.030) Urine Protein Negative (NEGATIVE) Urine Glucose (UA) Negative (NEGATIVE) Urine Ketones Negative (NEGATIVE) Urine Occult Blood Negative (NEGATIVE) Urine Nitrite Negative (NEGATIVE) Urine Bilirubin Negative (NEGATIVE) Urine Urobilinogen 1.0 (0.2-1.0) mg/dL Ur Leukocyte Esterase Negative (NEGATIVE) Urine RBC Not seen /HPF Urine WBC Not seen (0-5/HPF) /HPF Ur Epithelial Cells Rare (NOT SEEN) /HPF Urine Bacteria Rare (0-FEW/HPF) /HPF Result Diagrams: 03/21/19 15:08 03/21/19 15:08 Problem List Initiated/Reviewed/Updated: Yes Orders Last 24hrs: Active Orders 24 hr Category Date Time Status Admission Diagnosis [ADT] Stat ADT 03/21/19 17:17 Ordered Admission Status [Patient Status] [ADT] Routine ADT 03/21/19 17:18 Active Intake and Output [RC] Q6H Care 03/21/19 18:47 Active May Shower [RC] ASDIRECTED Care 03/21/19 18:47 Active Notify Provider Vital Signs [RC] ,20 Care 03/21/19 18:47 Active Oxygen Therapy [RC] .PRN Care 03/21/19 18:47 Active Up ad Summer [RC] ASDIRECTED Care 03/21/19 18:47 Active VTE/DVT Education [RC] PER UNIT ROUTINE Care 03/21/19 18:47 Active Vital Signs [RC] Q4H Care 03/21/19 18:47 Active Clear Liquid Diet [DIET] Diet 03/21/19 Breakfast Active Abdomen 2V AP Flat Upright [CR] Urgent Exams 03/21/19 15:39 Stop Req CBC WITH AUTO DIFF [HEME] AM Lab 03/22/19 05:11 Ordered COMPREHENSIVE METABOLIC PN,CMP [CHEM] AM Lab 03/22/19 05:11 Ordered CULTURE BLOOD [BC] Stat Lab 03/21/19 17:33 Received CULTURE BLOOD [BC] Stat Lab 03/21/19 17:40 Received MAGNESIUM [CHEM] AM Lab 03/22/19 05:11 Ordered Acetaminophen [Tylenol] Med 03/21/19 18:47 Active 650 mg PO Q4H PRN Acetaminophen/HYDROcodone [[place] 325-10 MG] Med 03/21/19 18:47 Active 1 tab PO Q4H PRN Dextrose 5%-0.45% NaCl [Dextrose 5%-1/2 NS] 1,000 ml Med 03/21/19 19:00 Active IV ASDIRECTED Docusate Sodium [Colace] Med 03/21/19 18:47 Active 100 mg PO BID PRN Enoxaparin [Lovenox] Med 03/22/19 09:00 Active 40 mg SUBCUT DAILY Folic Acid Med 03/22/19 09:00 Active 1 mg PO DAILY Magnesium Hydroxide [Milk of Magnesia] Med 03/21/19 18:47 Active 30 ml PO Q12H PRN Morphine Med 03/21/19 18:47 Active 2 mg IVPUSH Q2H PRN Ondansetron [Zofran ODT] Med 03/21/19 18:47 Active 4 mg PO Q6H PRN Ondansetron [Zofran] Med 03/21/19 18:47 Active 4 mg IVPUSH Q6H PRN Pantoprazole [ProTONIX IV] Med 03/22/19 09:00 Active 40 mg IVPUSH Q12HR Pantoprazole [ProTONIX IV] 40 mg Med 03/21/19 17:30 Active Sodium Chloride 0.9% [Normal Saline] 100 ml IV .CONTINUOS Polyethylene Glycol 3350 [MiraLAX] Med 03/21/19 18:47 Active 17 gm PO DAILY PRN Sodium Chloride 0.9% [Normal Saline] 1,000 ml Med 03/21/19 19:08 Active IV ONETIME Zolpidem [Ambien] Med 03/21/19 18:47 Active 5 mg PO BEDTIME PRN Blood Culture x2 Reflex Set [OM.PC] Stat Oth 03/21/19 17:17 Ordered Resuscitation Status Routine Resus Stat 03/21/19 18:47 Ordered Medication Orders Acetaminophen (Tylenol) 650 mg PO Q4H PRN PRN Reason: Pain (Mild 1-3)/fever Hydrocodone Bitart/Acetaminophen ([place] 325-10 Mg) 1 tab PO Q4H PRN PRN Reason: Pain (moderate 4-6) Docusate Sodium (Colace) 100 mg PO BID PRN PRN Reason: Constipation Enoxaparin Sodium (Lovenox) 40 mg SUBCUT DAILY KAMINI Folic Acid (Folic Acid) 1 mg PO DAILY KAMINI Pantoprazole Sodium 40 mg/ (Sodium Chloride) 100 mls @ 20 mls/hr IV .CONTINUOS KAMINI Dextrose/Sodium Chloride (Dextrose 5%-1/2 Ns) 1,000 mls @ 125 mls/hr IV ASDIRECTED KAMINI Sodium Chloride (Normal Saline) 1,000 mls @ 500 mls/hr IV ONETIME ONE Stop: 03/21/19 21:07 Last Admin: 03/21/19 19:27 Dose: 500 mls/hr Magnesium Hydroxide (Milk Of Magnesia) 30 ml PO Q12H PRN PRN Reason: Constipation Morphine Sulfate (Morphine) 2 mg IVPUSH Q2H PRN PRN Reason: Pain (severe 7-10) Ondansetron HCl (Zofran Odt) 4 mg PO Q6H PRN PRN Reason: nausea, able to take PO Ondansetron HCl (Zofran) 4 mg IVPUSH Q6H PRN PRN Reason: Nausea/Vomiting Pantoprazole Sodium (Protonix Iv) 40 mg IVPUSH Q12HR [facility] Polyethylene Glycol (Miralax) 17 gm PO DAILY PRN PRN Reason: Constipation Zolpidem Tartrate (Ambien) 5 mg PO BEDTIME PRN PRN Reason: Sleep Assessment/Plan Comment:: 58-year-old male with past medical history of rheumatoid arthritis on methotrexate and GERD on omeprazole who presented to emergency room for intermittent epigastric pain started today, associated only with nausea and radiates to the back. CT abdomen and pelvis with contrast reported no acute abnormalities. Chest x-ray reported no acute findings. Laboratory workup on admission: Lipase 62, WBC 18.6 K with right shift, CRP 1.0 electrolytes unremarkable, creatinine 0.8, total bilirubin 1.5, AST/ENT/ALP normal, troponin 0.00, urinalysis unremarkable. #Epigastric pain Possible pancreatitis versus viral gastritis however no definitive diagnosis at this time. Other differential diagnosis: Cholelithiasis, gastritis, constipation , partial small bowel obstruction, -Patient was started on 1 L of normal saline at 500 mL per hour - then start 1 L of 1/2 NS D5 infusion at 1 25 mL per hour -Ultrasound for gallbladder and liver -Lactic acid ordered -Repeat lipase and ordered amylase -Pantoprazole 40 mg IV twice a day. Hold home omeprazole #Leukocytosis with right shift -2 blood cultures and urine culture ordered #Rheumatoid arthritis He takes methotrexate weekly on . #GERD Pantoprazole 40 mg IV twice a day
[2019-03-22 06:48] LABS: ANION GAP 9.9; CHLORIDE,CL 106 mmol/L (101-111); SODIUM,NA 138 mmol/L (135-145)
[2019-03-22] MEDS ORDERED: Enoxaparin 40 MG/0.4 ML Syringe SUBCUT SCH (09:00)
[2019-03-22] MEDS ORDERED: Folic Acid 1 MG Tab PO SCH (09:00)
[2019-03-22] MEDS ORDERED: Pantoprazole 40 MG Vial IVPUSH SCH (09:00)
[2019-03-22] MEDS ORDERED: Simethicone 80 MG Tab.Chew PO ONE ×2 (10:46→13:30)
[2019-03-22 14:06] VITALS: BP 112/72; PULSE 61
--- NOTE | 2019-03-22 15:29 | PCM.DCSUM1 ---
Discharge Summary - Hospital Course Free Text/Narrative:: 58-year-old male with past medical history of rheumatoid arthritis on methotrexate and GERD on omeprazole who presented to emergency room for intermittent epigastric pain started on day of admission and was associated only with nausea and radiates to the back. Imaging on admission: CT abdomen and pelvis with contrast reported no acute abnormalities. Chest x-ray reported no acute findings. Laboratory workup on admission: Lipase 62, WBC 18.6 K with right shift, CRP 1.0 electrolytes unremarkable, creatinine 0.8, total bilirubin 1.5, AST/ENT/ALP normal, troponin 0.00, urinalysis unremarkable. He was started on IV fluid and pain medicine. During hospitalization patient did not have any symptoms. He tolerated full diet well. Ultrasound gallbladder was done and reported cholelithiasis without acute cholecystitis or dilated common duct. Laboratory data today: WBC dropped from 18.6K to 3.6K and still right chest. Total bili improved from 1.5 to 1.3. Lipase back to normal. Lactic acid normal. Therefore most likely patient's epigastric pain was due to cholelithiasis. He was discharged home to follow up with primary care provider. I discussed with him considering seeing general surgery to discuss the possibility of gallbladder removal. He was also advised to follow-up with his property site manager for his WBC and right shift. Diagnosis: Stroke: No - Discharge Data Discharge Date: 03/22/19 Discharge Disposition: Home, Self-Care 01 Condition: Good - Referral to Home Health Date of Face to Face Encounter: 03/22/19 Primary Care Physician: Pratik Gaytan MD - Discharge Diagnosis/Problem(s) (1) Cholelithiasis SNOMED Code(s): 031429162 ICD Code: K80.20 - CALCULUS OF GALLBLADDER W/O CHOLECYSTITIS W/O OBSTRUCTION Status: Acute (2) Abdominal pain SNOMED Code(s): 31590993 ICD Code: R10.9 - UNSPECIFIED ABDOMINAL PAIN Status: Acute Qualifiers: Abdominal location: epigastric Qualified Code(s): R10.13 - Epigastric pain (3) Gastroesophageal reflux disease SNOMED Code(s): 798554484 ICD Code: K21.9 - GASTRO-ESOPHAGEAL REFLUX DISEASE WITHOUT ESOPHAGITIS Status: Chronic Qualifiers: Esophagitis presence: esophagitis presence not specified Qualified Code(s) : K21.9 - Gastro-esophageal reflux disease without esophagitis - Patient Instructions Diet, Other: Low-fat diet Activity: As Tolerated Showering/Bathing: May Shower Notify Provider of: Fever, Increased Pain, Drainage, Nausea and/or Vomiting - Discharge Plan Home Medications: Home Meds Methotrexate Sodium [Methotrexate] 20 mg PO .Friday08/08/17 [History] Omeprazole Magnesium [Prilosec] 20 mg PO DAILY 08/08/17 [History] Folic Acid 1 mg PO DAILY 03/21/19 [History] Patient Handouts: Food Choices for Gastroesophageal Reflux Disease, Adult, Easy -to-Read, Cholelithiasis, [id number], Abdominal Pain, Adult, [id number], Gastroesophageal Reflux Disease, Adult, [id number] Referrals: Pratik Gaytan MD [Primary Care Provider] - - Discharge Summary/Plan Comment DC Time >30 min.: No - General Info Date of Service: 03/22/19 Admission Dx/Problem (Free Text: Abdominal pain Subjective Update: Patient had bowel movement and passed gas today. Overnight he denies fever, chills, nausea, vomiting, headache, upper respiratory symptoms, cough, chest pain, palpitation, abdominal pain, diarrhea, blood in stool, black stool, dysuria, urinary frequency, blood in the urine, unilateral weakness/numbness/ tingling, rash, any other symptoms or concern. - Patient Data Vitals - Most Recent: Last Vital Signs Temp 36.9 C 03/22/19 12:00 Pulse 61 03/22/19 12:00 Resp 18 03/22/19 12:00 BP 112/72 03/22/19 12:00 Pulse Ox 97 03/22/19 12:00 Weight - Most Recent: 104.598 kg I&O - Last 24 hours: Intake & Output 03/22/19 03/22/19 03/22/19 06:59 14:59 22:59 Intake Total 1000 1010 Output Total 800 300 Balance 200 710 Lab Results - Last 24 hrs: Laboratory Results - last 24 hr 03/21/19 03/21/19 03/21/19 Range/Units 15:08 15:08 15:08 WBC 18.6 H (5.0-10.0) 10^3/uL RBC 5.04 (4.6-6.2) 10^6/uL Hgb 15.0 D (14.0-18.0) g/dL Hct 43.5 (40.0-54.0) % MCV 86.3 (80-100) fL MCH 29.8 (27.0-34.0) pg MCHC 34.5 (33.0-35.0) g/dL Plt Count 155 (150-450) 10^3/uL Neut % (Auto) 12.1 L (42.2-75.2) % Lymph % (Auto) 81.8 H (20.5-50.1) % Evans % (Auto) 5.7 (2-8) % Eos % (Auto) 0.3 L (1.0-3.0) % Baso % (Auto) 0.1 (0.0-1.0) % Add Manual Diff Yes Neutrophils % (Manual) 13 L (42-75) % Band Neutrophils % 4 % Lymphocytes % (Manual) 78 H (20-50) % Monocytes % (Manual) 5 (2-8) % Atypical Lymphocytes Many Platelet Estimate Adequate Anisocytosis 1+ slight ESR (0-15) mm/hr Sodium 140 (135-145) mmol/L Potassium 4.1 (3.6-5.0) mmol/L Chloride 102 (101-111) mmol/L Carbon Dioxide 28.0 (21.0-31.0) mmol/L Anion Gap 14.1 BUN 11 (7-18) mg/dL Creatinine 0.8 (0.6-1.3) mg/dL Est Cr Clr Drug Dosing 118.45 mL/min Estimated GFR (MDRD) > 60 BUN/Creatinine Ratio 13.75 Glucose 96 (74-105) mg/dL Lactic Acid (0.5-2.2) mmol/L Calcium 9.6 (8.4-10.2) mg/dl Magnesium (1.8-2.5) mg/dL Total Bilirubin 1.5 H (0.2-1.0) mg/dL AST 27 (10-42) IU/L ALT 21 (10-60) IU/L Alkaline Phosphatase 64 (42-121) IU/L Troponin I 0.00 (0.00-0.08) ng/mL C-Reactive Protein (0.0-1.3) mg/dL Total Protein 7.9 (6.7-8.2) g/dl Albumin 4.7 (3.2-5.5) g/dl Globulin 3.2 Albumin/Globulin Ratio 1.47 Amylase (28-100) U/L Lipase 62 H (22-51) U/L Urine Color (YELLOW) Urine Appearance (CLEAR) Urine pH (5.0-9.0) Ur Specific [place] (1.005-1.030) Urine Protein (NEGATIVE) Urine Glucose (UA) (NEGATIVE) Urine Ketones (NEGATIVE) Urine Occult Blood (NEGATIVE) Urine Nitrite (NEGATIVE) Urine Bilirubin (NEGATIVE) Urine Urobilinogen (0.2-1.0) mg/dL Ur Leukocyte Esterase (NEGATIVE) Urine RBC /HPF Urine WBC (0-5/HPF) /HPF Ur Epithelial Cells (NOT SEEN) /HPF Urine Bacteria (0-FEW/HPF) /HPF 03/21/19 03/21/19 03/22/19 Range/Units 15:08 17:25 05:30 WBC 3.6 L (5.0-10.0) 10^3/uL RBC 4.18 L (4.6-6.2) 10^6/uL Hgb 12.3 L D (14.0-18.0) g/dL Hct 36.5 L (40.0-54.0) % MCV 87.3 (80-100) fL MCH 29.4 (27.0-34.0) pg MCHC 33.7 (33.0-35.0) g/dL Plt Count 114 L (150-450) 10^3/uL Neut % (Auto) 18.7 L (42.2-75.2) % Lymph % (Auto) 69.0 H (20.5-50.1) % Evans % (Auto) 11.7 H (2-8) % Eos % (Auto) 0.6 L (1.0-3.0) % Baso % (Auto) 0.0 (0.0-1.0) % Add Manual Diff Yes Neutrophils % (Manual) 20 L (42-75) % Band Neutrophils % % Lymphocytes % (Manual) 71 H (20-50) % Monocytes % (Manual) 9 H (2-8) % Atypical Lymphocytes Moderate Platelet Estimate Anisocytosis ESR (0-15) mm/hr Sodium (135-145) mmol/L Potassium (3.6-5.0) mmol/L Chloride (101-111) mmol/L Carbon Dioxide (21.0-31.0) mmol/L Anion Gap BUN (7-18) mg/dL Creatinine (0.6-1.3) mg/dL Est Cr Clr Drug Dosing mL/min Estimated GFR (MDRD) BUN/Creatinine Ratio Glucose (74-105) mg/dL Lactic Acid (0.5-2.2) mmol/L Calcium (8.4-10.2) mg/dl Magnesium (1.8-2.5) mg/dL Total Bilirubin (0.2-1.0) mg/dL AST (10-42) IU/L ALT (10-60) IU/L Alkaline Phosphatase (42-121) IU/L Troponin I (0.00-0.08) ng/mL C-Reactive Protein 1.0 (0.0-1.3) mg/dL Total Protein (6.7-8.2) g/dl Albumin (3.2-5.5) g/dl Globulin Albumin/Globulin Ratio Amylase (28-100) U/L Lipase (22-51) U/L Urine Color Yellow (YELLOW) Urine Appearance Clear (CLEAR) Urine pH 6.5 (5.0-9.0) Ur Specific [place] 1.010 (1.005-1.030) Urine Protein Negative (NEGATIVE) Urine Glucose (UA) Negative (NEGATIVE) Urine Ketones Negative (NEGATIVE) Urine Occult Blood Negative (NEGATIVE) Urine Nitrite Negative (NEGATIVE) Urine Bilirubin Negative (NEGATIVE) Urine Urobilinogen 1.0 (0.2-1.0) mg/dL Ur Leukocyte Esterase Negative (NEGATIVE) Urine RBC Not seen /HPF Urine WBC Not seen (0-5/HPF) /HPF Ur Epithelial Cells Rare (NOT SEEN) /HPF Urine Bacteria Rare (0-FEW/HPF) /HPF 03/22/19 03/22/19 03/22/19 Range/Units 05:30 05:30 05:30 WBC (5.0-10.0) 10^3/uL RBC (4.6-6.2) 10^6/uL Hgb (14.0-18.0) g/dL Hct (40.0-54.0) % MCV (80-100) fL MCH (27.0-34.0) pg MCHC (33.0-35.0) g/dL Plt Count (150-450) 10^3/uL Neut % (Auto) (42.2-75.2) % Lymph % (Auto) (20.5-50.1) % Evans % (Auto) (2-8) % Eos % (Auto) (1.0-3.0) % Baso % (Auto) (0.0-1.0) % Add Manual Diff Neutrophils % (Manual) (42-75) % Band Neutrophils % % Lymphocytes % (Manual) (20-50) % Monocytes % (Manual) (2-8) % Atypical Lymphocytes Platelet Estimate Anisocytosis ESR 2 (0-15) mm/hr Sodium 138 (135-145) mmol/L Potassium 3.9 (3.6-5.0) mmol/L Chloride 106 (101-111) mmol/L Carbon Dioxide 26.0 (21.0-31.0) mmol/L Anion Gap 9.9 BUN 9 (7-18) mg/dL Creatinine 0.8 (0.6-1.3) mg/dL Est Cr Clr Drug Dosing 118.45 mL/min Estimated GFR (MDRD) > 60 BUN/Creatinine Ratio 11.25 Glucose 107 H (74-105) mg/dL Lactic Acid 0.8 (0.5-2.2) mmol/L Calcium 8.5 (8.4-10.2) mg/dl Magnesium 1.9 (1.8-2.5) mg/dL Total Bilirubin 1.3 H (0.2-1.0) mg/dL AST 22 (10-42) IU/L ALT 18 (10-60) IU/L Alkaline Phosphatase 51 (42-121) IU/L Troponin I (0.00-0.08) ng/mL C-Reactive Protein (0.0-1.3) mg/dL Total Protein 6.2 L (6.7-8.2) g/dl Albumin 3.6 (3.2-5.5) g/dl Globulin 2.6 Albumin/Globulin Ratio 1.38 Amylase 39 (28-100) U/L Lipase 30 (22-51) U/L Urine Color (YELLOW) Urine Appearance (CLEAR) Urine pH (5.0-9.0) Ur Specific [place] (1.005-1.030) Urine Protein (NEGATIVE) Urine Glucose (UA) (NEGATIVE) Urine Ketones (NEGATIVE) Urine Occult Blood (NEGATIVE) Urine Nitrite (NEGATIVE) Urine Bilirubin (NEGATIVE) Urine Urobilinogen (0.2-1.0) mg/dL Ur Leukocyte Esterase (NEGATIVE) Urine RBC /HPF Urine WBC (0-5/HPF) /HPF Ur Epithelial Cells (NOT SEEN) /HPF Urine Bacteria (0-FEW/HPF) /HPF Med Orders - Current: Current Medications Acetaminophen (Tylenol) 650 mg PO Q4H PRN PRN Reason: Pain (Mild 1-3)/fever Hydrocodone Bitart/Acetaminophen ([place] 325-10 Mg) 1 tab PO Q4H PRN PRN Reason: Pain (moderate 4-6) Docusate Sodium (Colace) 100 mg PO BID PRN PRN Reason: Constipation Enoxaparin Sodium (Lovenox) 40 mg SUBCUT DAILY [facility] Last Admin: 03/22/19 09:32 Dose: Not Given Folic Acid (Folic Acid) 1 mg PO DAILY [facility] Last Admin: 03/22/19 09:25 Dose: 1 mg Pantoprazole Sodium 40 mg/ (Sodium Chloride) 100 mls @ 20 mls/hr IV .CONTINUOS [facility] Magnesium Hydroxide (Milk Of Magnesia) 30 ml PO Q12H PRN PRN Reason: Constipation Morphine Sulfate (Morphine) 2 mg IVPUSH Q2H PRN PRN Reason: Pain (severe 7-10) Ondansetron HCl (Zofran Odt) 4 mg PO Q6H PRN PRN Reason: nausea, able to take PO Ondansetron HCl (Zofran) 4 mg IVPUSH Q6H PRN PRN Reason: Nausea/Vomiting Pantoprazole Sodium (Protonix Iv) 40 mg IVPUSH Q12HR [facility] Last Admin: 03/22/19 09:26 Dose: 40 mg Polyethylene Glycol (Miralax) 17 gm PO DAILY PRN PRN Reason: Constipation Zolpidem Tartrate (Ambien) 5 mg PO BEDTIME PRN PRN Reason: Sleep Discontinued Medications Sodium Chloride (Normal Saline) 1,000 mls @ 150 mls/hr IV ASDIRECTED [facility] Dextrose/Sodium Chloride (Dextrose 5%-1/2 Ns) 1,000 mls @ 125 mls/hr IV ASDIRECTED [facility] Stop: 03/22/19 02:59 Last Admin: 03/21/19 21:32 Dose: 125 mls/hr Sodium Chloride (Normal Saline) 1,000 mls @ 500 mls/hr IV ONETIME ONE Stop: 03/21/19 21:07 Last Admin: 03/21/19 19:27 Dose: 500 mls/hr Iopamidol (Isovue-300 (61%)) 100 ml IVPUSH ONETIME ONE Stop: 03/21/19 16:03 Last Admin: 03/21/19 16:26 Dose: 100 ml Morphine Sulfate (Morphine) 2 mg IVPUSH ONETIME ONE Stop: 03/21/19 15:42 Last Admin: 03/21/19 15:44 Dose: 2 mg Pantoprazole Sodium (Protonix Iv) 40 mg IVPUSH ONETIME ONE Stop: 03/21/19 17:16 Last Admin: 03/21/19 17:35 Dose: 40 mg Simethicone (Simethicone) 160 mg PO ONETIME ONE Stop: 03/22/19 10:47 Last Admin: 03/22/19 11:14 Dose: 160 mg Simethicone (Simethicone) 160 mg PO ONETIME ONE Stop: 03/22/19 13:31 Last Admin: 03/22/19 13:12 Dose: Not Given - Exam General: Reports: Alert, Oriented, Cooperative, No Acute Distress. Denies: Mild Distress, Moderate Distress, Severe Distress, Sedated, Lethargic, Obtunded HEENT: Reports: Pupils Equal, Pupils Reactive, EOMI, Mucous Membr. Moist/[place]uttle Neck: Reports: Supple, Trachea Midline, No JVD Lungs: Reports: Clear to Auscultation, Normal Respiratory Effort Cardiovascular: Reports: Regular Rate, Regular Rhythm GI/Abdominal Exam: Normal Bowel Sounds, Soft, Non-Tender, No Organomegaly, No Distention, No Mass, Other (Negative Burnette's sign). No: Distended, Guarding, Rigid, Rebound (Male) Exam: Deferred Rectal (Males) Exam: Deferred Back Exam: Reports: Normal Inspection, Full Range of Motion. Denies: CVA Tenderness (L), CVA Tenderness (R) Extremities: Normal Inspection, Normal Range of Motion, Non-Tender, No Pedal Edema, Normal Capillary Refill Skin: Reports: Warm, Dry, Intact Neurological: Reports: No New Focal Deficit, Normal Speech, Strength Equal Bilateral Psy/Mental Status: Reports: Alert, Normal Affect, Normal Mood
== END 2019-03-22 16:55 | disposition home or self-care (01) ==
LOC: DL.ED 14:57 → DL.MS 17:18
PROVIDERS: ADMIT Family Medicine; ATTEND Family Medicine
DX: R10.13 Epigastric pain (principal); K80.20 Calculus of gallbladder without cholecystitis without obstruction; K21.9 Gastro-esophageal reflux disease without esophagitis; D72.829 Elevated white blood cell count, unspecified; M06.9 Rheumatoid arthritis, unspecified; Z88.8 Allergy status to other drugs, medicaments and biological substances; Z87.891 Personal history of nicotine dependence; Z79.899 Other long term (current) drug therapy
CPT/HCPCS: 36415; 71046; 74177; 76705; 80053; 81001; 82150; 83605; 83690; 83735; 84484; 85025; 85651; 86140; 87040; 93005; 96361; 96374; 96375; 96376; 99285; A9270; C9113; G0378; J2270; J7030; J7042; Q9967

== ENCOUNTER 2020-03-04 01:50 | Emergency (ER) | payer BC, OTHER ==
[2020-03-04 01:58] VITALS: BP 138/93; PULSE 60
--- NOTE | 2020-03-04 02:05 | EDM.PDOC ---
ED HPI GENERAL MEDICAL PROBLEM - General Chief Complaint: Abdominal Pain Stated Complaint: SEVERE STOMACH PAINS Time Seen by Provider: 03/04/20 01:55 Source of Information: Reports: Patient, RN, RN Notes Reviewed History Limitations: Reports: No Limitations - History of Present Illness INITIAL COMMENTS - FREE TEXT/NARRATIVE: Patient presents to ER with complaint of epigastric pain, rated 10/10. Patient states he had a hamburger soup for supper tonight and pain began about 10:30 PM. States he does take Prilosec daily for GERD. States he has a history of rheumatoid arthritis, but no cardiac history. Patient states he has had a gallbladder attack in the past, states he has had an ultrasound of the gallbladder and that it was packed with stones at that time. Admits to some nausea, states he has not vomited. Last bowel movement 2 days ago, states it was soft but not a complete bowel movement for him. Onset: Today, Sudden Epigastric Pain Score (Numeric/FACES): 10 - Related Data Allergies Allergy/AdvReac Type Severity Reaction Status Date / Time varenicline tartrate Allergy Unknown Seizure Verified 03/04/20 01:55 [From [email or web address]] Home Meds: Home Meds Omeprazole Magnesium [Prilosec] 20 mg PO DAILY 08/08/17 [History] metHOTREXate sodium [Methotrexate] 20 mg PO .Friday08/08/17 [History] Folic Acid 1 mg PO DAILY 03/21/19 [History] Past Medical History - Past Health History Medical/Surgical History: Denies Medical/Surgical History HEENT History: Reports: Hard of Hearing, Impaired Vision Gastrointestinal History: Reports: GERD Musculoskeletal History: Reports: Arthritis, Fracture, RA, Other (See Below) Other Musculoskeletal History: ankle, wrist and leg and foot fx. 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 Social & Family History - Family History Family Medical History: Noncontributory - Tobacco Use Smoking Status *Q: Never Smoker Second Hand Smoke Exposure: No - Caffeine Use Caffeine Use: Reports: Coffee Caffeine Use Comment: 2-4 cups coffee daily. - Recreational Drug Use Recreational Drug Use: No ED ROS GENERAL - Review of Systems Review Of Systems: Comprehensive ROS is negative, except as noted in HPI. ED EXAM, GI/ABD - Physical Exam Exam: See Below Exam Limited By: No Limitations General Appearance: Alert, WD/WN, Moderate Distress Eyes: Bilateral: Normal Appearance, EOMI Ears: Normal External Exam, Hearing Grossly Normal Nose: Normal Inspection Throat/Mouth: Normal Inspection, Normal Voice, No Airway Compromise Head: Atraumatic, Normocephalic Neck: Normal Inspection, Supple, Non-Tender, Full Range of Motion Respiratory/Chest: No Respiratory Distress, Lungs Clear, Normal Breath Sounds, No Accessory Muscle Use, Chest Non-Tender Cardiovascular: Normal Peripheral Pulses, Regular Rate, Rhythm, No Edema, No Gallop, No JVD, No Murmur, No Rub GI/Abdominal Exam: Normal Bowel Sounds, No Organomegaly, Guarding, Tender (epigastric) (Male) Exam: Deferred Rectal (Males) Exam: Deferred Back Exam: Normal Inspection, Full Range of Motion Extremities: Normal Inspection, Normal Range of Motion, Non-Tender, Normal Capillary Refill, No Pedal Edema Neurological: Alert, Oriented, CN II-XII Intact, Normal Cognition, Normal Gait, Normal Reflexes, No Motor/Sensory Deficits Psychiatric: Normal Affect, Normal Mood Skin Exam: Warm, Dry, Intact, Normal Color, No Rash Lymphatic: No Adenopathy Course - Vital Signs Last Recorded V/S: Last Vital Signs Temp 97.2 F 03/04/20 01:55 Pulse 60 03/04/20 01:55 Resp 16 03/04/20 01:55 BP 138/93 H 03/04/20 01:55 Pulse Ox 100 03/04/20 01:55 - Orders/Labs/Meds Orders: Active Orders 24 hr Category Date Time Status EKG Documentation Completion [RC] STAT Care 03/04/20 02:02 Active Chest 1V Frontal [CR] Stat Exams 03/04/20 02:03 Ordered Labs: Laboratory Tests 03/04/20 03/04/20 Range/Units 02:15 02:15 WBC 13.2 H (5.0-10.0) 10^3/uL RBC 4.74 (4.6-6.2) 10^6/uL Hgb 14.3 D (14.0-18.0) g/dL Hct 41.1 (40.0-54.0) % MCV 86.7 (80-100) fL MCH 30.2 (27.0-34.0) pg MCHC 34.8 (33.0-35.0) g/dL Plt Count 133 L (150-450) 10^3/uL Neut % (Auto) 15.1 L (42.2-75.2) % Lymph % (Auto) 79.0 H (20.5-50.1) % [place] % (Auto) 5.6 (2-8) % Eos % (Auto) 0.2 L (1.0-3.0) % Baso % (Auto) 0.1 (0.0-1.0) % Sodium 142 (136-145) mmol/L Potassium 3.5 (3.5-5.1) mmol/L Chloride 103 (98-107) mmol/L Carbon Dioxide 28 (21-32) mmol/L Anion Gap 14.5 H (7-13) mEq/L BUN 13 (7-18) mg/dL Creatinine 0.96 (0.70-1.30) mg/dL Est Cr Clr Drug Dosing 97.52 mL/min Estimated GFR (MDRD) > 60 BUN/Creatinine Ratio 13.5 (No establ ref range) Glucose 100 H (74-99) mg/dL Calcium 8.8 (8.5-10.1) mg/dL Total Bilirubin 1.1 H (0.2-1.0) mg/dL AST 30 (15-37) U/L ALT 27 (16-63) U/L Alkaline Phosphatase 81 (46-116) U/L Troponin I < 0.017 (0.000-0.056) ng/mL Total Protein 7.7 (6.4-8.2) g/dL Albumin 4.6 (3.4-5.0) g/dL Globulin 3.1 Albumin/Globulin Ratio 1.5 Amylase 47 (25-115) U/L Lipase 114 (73-393) U/L Meds: Medications Discontinued Medications Generic Name Dose Route Start Last Admin Trade Name Freq PRN Reason Stop Dose Admin Al Hydroxide/Mg Hydroxide 30 ml 03/04/20 02:30 03/04/20 02:51 Gi Cocktail PO 10/03/20 02:31 30 ml ONETIME ONE Administration Fentanyl 50 mcg 03/04/20 03:34 03/04/20 03:39 Sublimaze IVPUSH 03/04/20 03:35 50 mcg ONETIME ONE Administration Hydromorphone HCl 1 mg 03/04/20 04:17 03/04/20 04:28 Dilaudid IVPUSH 03/04/20 04:18 1 mg ONETIME ONE Administration Hydromorphone HCl 1 mg 03/04/20 05:27 03/04/20 05:29 Dilaudid IVPUSH 03/04/20 05:28 1 mg ONETIME ONE Administration Ceftriaxone Sodium 1 gm/ 50 mls @ 100 mls/hr 03/04/20 04:16 03/04/20 04:28 Sodium Chloride IV 03/04/20 04:45 100 mls/hr ONETIME ONE Administration Iopamidol 100 ml 03/04/20 03:08 Isovue-300 (61%) IVPUSH 03/04/20 03:09 ONETIME ONE Metoclopramide HCl 10 mg 03/04/20 03:38 03/04/20 03:41 Reglan IVPUSH 03/04/20 03:39 10 mg ONETIME ONE Administration Ondansetron HCl 4 mg 03/04/20 02:33 03/04/20 02:37 Zofran IV 03/04/20 02:34 4 mg ONETIME ONE Administration Pantoprazole Sodium 40 mg 03/04/20 03:04 03/04/20 03:15 Protonix Iv IVPUSH 03/04/20 03:05 40 mg ONETIME ONE Administration - Radiology Interpretation Free Text/Narrative:: CT Abdomen/Pelvis with contrast: PROCEDURE INFORMATION: Exam: CT Abdomen And Pelvis With Contrast Exam date and time: 03/04/2020 3:27 AM Age: 59 years old Clinical indication: Other: Wbc 13,200; Additional info: Abdominal pain TECHNIQUE: Imaging protocol: Computed tomography of the abdomen and pelvis with intravenous contrast. Radiation optimization: All CT scans at this facility use at least one of these dose optimization techniques: automated exposure control; mA and/or kV adjustment per patient size (includes targeted exams where dose is matched to clinical indication); or iterative reconstruction. Contrast material: [id number]; Contrast volume: 100 ml; Contrast route: INTRAVENOUS (IV); COMPARISON: CT Abdomen Pelvis w Cont 03/21/2019 4:23 PM FINDINGS: Liver: Normal. No mass. Gallbladder and bile ducts: The gallbladder is patulous without evidence of gallstones. Subtle strandy and hazy opacities are seen adjacent to the serosal margin of the gallbladder, findings could represent mild inflammatory changes and acalculous cholecystitis. Pancreas: Normal. No ductal dilation. Spleen: The spleen is prominent measuring 16.7 cm AP dimension. Adrenals: Normal. No mass. Kidneys and ureters: Normal. No hydronephrosis. Stomach and bowel: Diverticula are seen on the sigmoid colon. There are no inflammatory changes seen to suggest diverticulitis. Appendix: The appendix is visualized and is normal in configuration. Intraperitoneal space: Unremarkable. No free air. No significant fluid col lection. Vasculature: Unremarkable. No abdominal aortic aneurysm. Lymph nodes: Unremarkable. No enlarged lymph nodes. Urinary bladder: Unremarkable as visualized. Reproductive: Unremarkable as visualized. Bones/joints: Unremarkable. No acute fracture. Soft tissues: Unremarkable. IMPRESSION: 1. Splenomegaly 2. Patulous gallbladder with some subtle strandy opacities adjacent to the serosal margin, findings that may represent mild acalculous cholecystitis. 3. Normal appendix 4. Diverticulosis of the sigmoid colon without evidence of diverticulitis Thank you for allowing us to participate in the care of your patient. Dictated and Authenticated by: Chet Betancourt MD 03/04/2020 4:03 AM Central Time ([place] & [place]) See rad report - Re-Assessments/Exams Free Text/Narrative Re-Assessment/Exam: 03/04/20 04:54 [facility] on diversion at this time. [facility] Stated if patient was stable and we felt comfortable keeping the patient her and pain controlled, the patient could be transferred at a later time this morning. Dr. Hoff unwilling to admit the patient for observation and treat his pain. Discussed with the patient keeping him here extended ER and keeping his pain controlled, or transferring to [facility] in [place]. Patient requests to be transferred to [place]. [facility] called. Discussed patient case with Dr. Porter, surgeon at [facility], who agreed to accept the patient for transfer to [facility]. Patient states he feels he can travel by private vehicle to [place] with some pain medication. The patient is medically stable at this time to be transferred by private vehicle to [place]. 03/04/20 05:09 Departure - Departure Time of Disposition: 05:34 Disposition: DC/Tfer to Acute Hospital 02 Condition: Fair Clinical Impression: Cholecystitis, Splenomegaly - Discharge Information *PRESCRIPTION DRUG MONITORING PROGRAM REVIEWED*: No *COPY OF PRESCRIPTION DRUG MONITORING REPORT IN PATIENT DEBBIE: No Forms: ED Department Discharge, Interfacility Transfer EMTALA Sepsis Event Note (ED) - Evaluation Sepsis Screening Result: No Definite Risk - Focused Exam Vital Signs: Vital Signs Temp Pulse Resp BP Pulse Ox 03/04/20 01:55 97.2 F 60 16 138/93 H 100 - My Orders Last 24 Hours: My Active Orders 03/04/20 02:02 EKG Documentation Completion [RC] STAT 03/04/20 02:03 Chest 1V Frontal [CR] Stat - Assessment/Plan Last 24 Hours: My Active Orders 03/04/20 02:02 EKG Documentation Completion [RC] STAT 03/04/20 02:03 Chest 1V Frontal [CR] Stat
[2020-03-04] MEDS ORDERED: GI Cocktail Oral Solution 30 ML PO ONE (02:30)
[2020-03-04] MEDS ORDERED: Ondansetron 4 MG/2 ML SDV IV ONE (02:33)
[2020-03-04 02:48] LABS: ANION GAP 14.5 mEq/L (7-13); CHLORIDE,CL 103 mmol/L (98-107); SODIUM,NA 142 mmol/L (136-145)
[2020-03-04] MEDS ORDERED: Pantoprazole 40 MG Vial IVPUSH ONE (03:04)
[2020-03-04] MEDS ORDERED: Iopamidol 612 MG/ML 100 ML Bottle IVPUSH ONE (03:08)
[2020-03-04] MEDS ORDERED: fentaNYL 100 MCG/2 ML SDV IVPUSH ONE (03:34)
[2020-03-04] MEDS ORDERED: Metoclopramide 10 MG/2 ML SDV IVPUSH ONE (03:38)
--- NOTE | 2020-03-04 04:03 | CT ---
PROCEDURE INFORMATION: Exam: CT Abdomen And Pelvis With Contrast Exam date and time: 03/04/2020 3:27 AM Age: 59 years old Clinical indication: Other: Wbc 13,200; Additional info: Abdominal pain TECHNIQUE: Imaging protocol: Computed tomography of the abdomen and pelvis with intravenous contrast. Radiation optimization: All CT scans at this facility use at least one of these dose optimization techniques: automated exposure control; mA and/or kV adjustment per patient size (includes targeted exams where dose is matched to clinical indication); or iterative reconstruction. Contrast material: [id number]; Contrast volume: 100 ml; Contrast route: INTRAVENOUS (IV); COMPARISON: CT Abdomen Pelvis w Cont 03/21/2019 4:23 PM FINDINGS: Liver: Normal. No mass. Gallbladder and bile ducts: The gallbladder is patulous without evidence of gallstones. Subtle strandy and hazy opacities are seen adjacent to the serosal margin of the gallbladder, findings could represent mild inflammatory changes and acalculous cholecystitis. Pancreas: Normal. No ductal dilation. Spleen: The spleen is prominent measuring 16.7 cm AP dimension. Adrenals: Normal. No mass. Kidneys and ureters: Normal. No hydronephrosis. Stomach and bowel: Diverticula are seen on the sigmoid colon. There are no inflammatory changes seen to suggest diverticulitis. Appendix: The appendix is visualized and is normal in configuration. Intraperitoneal space: Unremarkable. No free air. No significant fluid collection. Vasculature: Unremarkable. No abdominal aortic aneurysm. Lymph nodes: Unremarkable. No enlarged lymph nodes. Urinary bladder: Unremarkable as visualized. Reproductive: Unremarkable as visualized. Bones/joints: Unremarkable. No acute fracture. Soft tissues: Unremarkable. IMPRESSION: 1. Splenomegaly 2. Patulous gallbladder with some subtle strandy opacities adjacent to the serosal margin, findings that may represent mild acalculous cholecystitis. 3. Normal appendix 4. Diverticulosis of the sigmoid colon without evidence of diverticulitis
[2020-03-04] MEDS ORDERED: cefTRIAXone 1 GM in Sodium Chloride 0.9% 50 ML IV ONE (04:16)
[2020-03-04] MEDS ORDERED: HYDROmorphone 1 MG/ML Syringe IVPUSH ONE ×2 (04:17→05:27)
== END 2020-03-04 05:37 ==
LOC: DL.ED 01:50
DX: K81.9 Cholecystitis, unspecified (principal); R16.1 Splenomegaly, not elsewhere classified; K21.9 Gastro-esophageal reflux disease without esophagitis; Z88.8 Allergy status to other drugs, medicaments and biological substances; Z79.899 Other long term (current) drug therapy
CPT/HCPCS: 36415; 74177; 80053; 82150; 83690; 84484; 85025; 93005; 96365; 96375; 96376; 99285; A9270; C9113; J0696; J1170; J2405; J2765; J3010; J7050; Q9967; 99284